=== PATIENT | male | born 1960 | race Caucasian/White ===

== ENCOUNTER 2017-06-08 11:00 | Inpatient (IN) ==
[2017-06-08] MEDS ORDERED: NITROGLYCERIN 2% OINT 1 INCH/GM PACK TOP ONE (11:13)
[2017-06-08] MEDS ORDERED: ONDANSETRON 4 MG/2 ML VIAL IV STA (11:14)
[2017-06-08] MEDS ORDERED: METOPROLOL TARTRATE 5 MG/5 ML VIAL IV STA (11:14)
[2017-06-08] MEDS ORDERED: NITROGLYCERIN 2% OINT 1 INCH/GM PACK TOP STA (11:14)
[2017-06-08] MEDS ORDERED: ENOXAPARIN 100 MG/ML SYRINGE SUBCUT STA (11:14)
[2017-06-08] MEDS ORDERED: ENOXAPARIN 80 MG/0.8 ML SYRINGE SUBCUT ONE (11:14)
[2017-06-08] MEDS ORDERED: ONDANSETRON 4 MG/2 ML VIAL ONE (11:14)
[2017-06-08] MEDS ORDERED: ASPIRIN 325 MG TABLET ONE (11:14)
[2017-06-08] MEDS ORDERED: TICAGRELOR 90 MG TABLET PO STA (11:14)
[2017-06-08] MEDS ORDERED: MORPHINE 2 MG/1 ML SYRINGE ONE (11:14)
[2017-06-08] MEDS ORDERED: ASPIRIN 325 MG TABLET PO STA (11:14)
[2017-06-08] MEDS ORDERED: MORPHINE 2 MG/1 ML SYRINGE IV STA (11:14)
[2017-06-08] MEDS ORDERED: MIDAZOLAM 2 MG/2 ML VIAL ONE (11:17)
[2017-06-08] MEDS ORDERED: TICAGRELOR 90 MG TABLET ONE (11:17)
[2017-06-08] MEDS ORDERED: MEPERIDINE 25 MG/1 ML VIAL ONE (11:17)
--- NOTE | 2017-06-08 11:18 | Emergency Department Note ---
Phyllis Cheney Hilary, am scribing for, and in the presence of, Yong Corbin MD 11:18. Emerald Cheney Charles R, MD, personally performed the services described in this documentation, ascribed by Sandrine Ferguson in my presence, and it is both accurate and complete . Arrival - Arrival Chief Complaint: Chest Pain Stated Complaint: chest pain,SOB, arm pain, sweating ED Nursing Triage Note: patient has been having chest pain for the last week. this am he broke out in a sweat and pain became worse, nauseated, constant pain located across chest to left arm. reports dizziness. 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 Limitations: No Limitations Source: Patient, RN Notes Reviewed - History of Present Illness HPI Narrative: Pt is a 57 y/o male presenting to the ED with c/o chest pain which has been intermittent for a week but became constant this morning. Pt rates the pain at an 8 out of 10. Pt confirms diaphoresis, chest pain, SOB, nausea and left arm pain radiated from his chest. No other complaints or problems stated in the ED. Pt admits to Marijuana use last night but denies usage of cocaine or Viagra. Onset (ago): hour(s) Consistency: constant Severity: severe Severity scale (1-10): 8 Quality: sharp Allergies/Adverse Reactions: Allergies Allergy/AdvReac Type Severity Reaction Status Date / Time acetaminophen [From Lortab] AdvReac Intermediate Vomiting Verified 01/17/17 09: 12 hydrocodone [From Lortab] AdvReac Intermediate Vomiting Verified 01/17/17 09:12 Review of System - Review of System 12 point system: reviewed and no additional remarkable complaints except as stated - Review of System Constitutional: Present: diaphoresis. Absent: fever Respiratory: Present: respiratory distress (SOB) Cardiovascular: Present: chest pain Gastrointestinal: Present: nausea Musculoskeletal: Present: arm pain (left arm) Medical,Surgical,& Family Hx - Social History Smoking Status: Never smoker Exam Vital Signs: Vital Signs Temperature 98.7 F 06/08/17 11:05 Pulse Rate 87 06/08/17 11:05 Respiratory Rate 26 H 06/08/17 11:05 Blood Pressure 173/103 06/08/17 11:05 O2 Sat by Pulse Oximetry 97 06/08/17 11:05 - General General appearance: alert, in no apparent distress - Head Head exam: Present: atraumatic, normocephalic - Eye Eye exam: Present: normal appearance, PERRL, EOMI - ENT ENT exam: Present: mucous membranes moist, TM's normal bilaterally. Absent: mucous membranes dry - Neck Neck exam: Present: full ROM, trachea midline. Absent: tenderness - Chest Chest inspection: Present: symmetric chest wall rise. Absent: tenderness - Respiratory Respiratory exam: Present: respiratory distress (SOB), rhonchi, wheezes ( expiratory) - Cardiovascular Cardiovascular exam: Present: regular rate, normal rhythm, normal heart sounds. Absent: murmur, rubs, gallop - Abdominal Exam Abdominal exam: Present: soft, normal bowel sounds. Absent: distention, tenderness - Extremities Exam Extremities exam: Present: full ROM. Absent: tenderness - Back Exam Back exam: Present: full ROM. Absent: tenderness - Neurological Exam Neurological exam: Present: alert, oriented X3, CN II-XII intact. Absent: motor sensory deficit - Psychiatric Psychiatric exam: Present: normal affect, normal mood - Skin Skin exam: Present: warm, intact, normal color, diaphoresis. Absent: rash Course - Consultations Consultation #1: Dr. Berrios notified of acute inferior wall NV ST elevation in leads II, III and aVF, patient will be sent down to the [facility] for immediate intervention Time: 11:10 Results - EKG EKG results: interpreted by ERMD - Impressions ST elevation NV in leads II, III, aVF inferior wall NV Critical Care Time Critical Care Time: Yes Total Critical Care Time: 30 Disposition Clinical Impression: Chest pain, ST elevation myocardial infarction (STEMI) Case discussed with: patient Disposition: Still a Patient Condition: Guarded Time of Disposition: 11:19
[2017-06-08] MEDS ORDERED: HEPARIN/NACL 0.9% 2 UNITS/ML 0 ML IV ONE (11:20)
[2017-06-08] MEDS ORDERED: LIDOCAINE 1% 20 ML VIAL ONE (11:23)
[2017-06-08 11:30] LABS: Basophils # 0.1 10*3/uL (0.0-0.2); Basophils % 0.7 % (0.0-0.8); Eosinophils # 0.1 10*3/uL (0.0-0.87); Eosinophils % 0.8 % (0.00-10.9); Hematocrit 49.3 VOL% (42.0-52.0); Hemoglobin 17.1 GM/DL (14.0-18.0); Immature Granulocytes % 0.4 %; Immature Granulocytes Absolute 0.06 #; Lymphocytes # 3.3 10*3/uL (1.4-4.0); Lymphocytes % 24.6 % (21.2-54.2); Mean Corpuscular HGB Conc 34.7 GM/DL (32-36); Mean Corpuscular Hemoglobin 32 PG (27-34); Mean Corpuscular Volume 90.8 FL (87-102); Mean Platelet Volume 10.1 FL (9.6-12.0); Monocytes % 7.6 % (1.7-12.7); Neutrophils # 8.9 10*3/uL (1.4-7.4); Neutrophils % 65.9 % (38.7-73.9); Platelet Count 288 T/CUMM (130-400); Red Blood Count 5.43 MC/CUMM (3.8-5.5); Red Cell Distribution Width 13.8 % (9.3-17.3); White Blood Count 13.5 T/CUMM (4-12)
[2017-06-08] MEDS ORDERED: TIROFIBAN 5,000 MCG/100 ML PREMIX IV ONE (11:37)
[2017-06-08] MEDS ORDERED: ATROPINE 1 MG/1 ML VIAL ONE (11:48)
[2017-06-08] MEDS ORDERED: TIROFIBAN 5,000 MCG/100 ML PREMIX IV SCH (11:49)
[2017-06-08 12:08] LABS: Albumin 3.9 G/DL (3.4-5.0); Bilirubin,Total 0.4 MG/DL (0.2-1.0); Calcium 9.6 MG/DL (8.5-10.1); Magnesium 2.3 MG/DL (1.8-2.4); Osmolality,Calculated 271.8 MOS/KG (273-304)
--- NOTE | 2017-06-08 12:36 | Cardiology History & Physical ---
Assessment and Plan - Time spent with patient Time spent with patient: Greater than 30 minutes (1) ST elevation myocardial infarction (STEMI) Status: Acute Assessment and plan: Inferior ST elevation [place], acute Plan/recommendation: Lovenox Aspirin Oiir-qyyywwk-nfqdfqckbh ELIZABETH inhibitor if blood pressure tolerates it and if LVEF is below 40% Brilinta Check lipid profile and treat per guidelines I discussed with the patient the benefits of stopping tobacco/nicotine, the problems with continuing to use it, and options of treatment. The patient is considering this option. Emergency heart cath cath and possible PTCA or stent. Left heart cath and possible PTCA or stent were discussed with the patient. The risk of the procedure include but are not limited to a small risk of injury to the vessel, abnormal heart rhythm, stroke, heart attack, need for emergent surgery, contrast reaction, restenosis, infection, or . The patient voices understanding, agrees with the plan, and desires to proceed with the heart catheterization. Current Visit: Yes (2) Smoker Status: Acute Current Visit: Yes (3) Chest pain Status: Acute Current Visit: Yes History of Present Illness Chief complaint: "I hurt my chest" History of present illness: Mr. 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 He suddenly had onset of midline chest pain. He came to emergency room. He was seen. An inferior ST elevation [place]. [facility] When she arrived emergency room, Dr. Corbin noted inferior ST elevation [place]. He was given Lovenox 60 mg subcu, Brilinta 180 mg p.o., aspirin 325 mg daily. He was given some IV metoprolol. He was sent to the [facility]. He has not had prior heart problem No history of diabetes, kidney disease, lung disease No bleeding in the pt's bowels, urine, or coughing up blood. No planned surgery for the next year. No contraindication to anticoagulation for a year. He does smoke cigarettes. Plans to quit. Does not drink alcohol. He states he can and will take medications after this event to help reduce his risk of having another heart attack. Allergies Allergy/AdvReac Type Severity Reaction Status Date / Time acetaminophen [From Lortab] AdvReac Intermediate Vomiting Verified 01/17/17 09: 12 hydrocodone [From Lortab] AdvReac Intermediate Vomiting Verified 01/17/17 09:12 12 point system: reviewed and no additional remarkable complaints except as stated (A 12 point review of systems is negative except for as mentioned in HPI. ) Medical,Surgical,& Family Hx - Social History Smoking Status: Current every day smoker Have you smoked in the last 12 months: Yes Time spent discussing smoking cessation with patient: 3 to 10 minutes Frequency of Alcohol Use: None Type of Drug Use: None Functional capacity: independent ambulation Cardiology Physical Exam - Constitutional Vitals: Vital Signs Temp Pulse Resp BP Pulse Ox 98.7 F 87 26 H 178/89 98 06/08/17 11:15 06/08/17 11:15 06/08/17 11:15 06/08/17 11:15 06/08/17 11:15 Intake and Output 06/07/17 06/08/17 06/08/17 23:59 07:59 15:59 Other: Weight 61.235 kg Patient Weight 06/08/17 23:59 Weight 61.235 kg Exam: HEENT: Pupils equal, reactive to light and accommodation Neck: NoJVD or bruit Lungs clear to auscultation Heart: Regular rhythm rate with normal S1 and S2. Apical S4 Abdomen: No hepatosplenomegaly Spine/extremities: No clubbing, cyanosis, or edema Neuro: Nonfocal Psych: No depression or anxiety Femoral pulses are 4+. Foot pulses are 3+. Result/EKG - Labs CBC & BMP: 06/08/17 11:14 06/08/17 11:14 Lab Results: I have reviewed the past 24 hour labs Labs: Laboratory Results - last 24 hr 06/08/17 06/08/17 06/08/17 11:14 11:14 11:14 WBC 13.5 H RBC 5.43 Hgb 17.1 Hct 49.3 MCV 90.8 MCH 32 MCHC 34.7 RDW 13.8 Plt Count 288 MPV 10.1 Neut % (Auto) 65.9 Lymph % (Auto) 24.6 [place] % (Auto) 7.6 Eos % (Auto) 0.8 Baso % (Auto) 0.7 Neut # (Auto) 8.9 H Lymph # (Auto) 3.3 [place] # (Auto) 1.0 H Eos # (Auto) 0.1 Baso # (Auto) 0.1 Immature Gran % 0.4 Nucleated RBC % 0.0 Immature Gran # 0.06 Nucleated RBCs # 0.00 Immature Plt Fraction 0.0 Sodium 137 Potassium 4.0 Chloride 101 Carbon Dioxide 24 Anion Gap 16.0 H BUN 6 L Creatinine 1.00 GFR Calculation 83 BUN/Creatinine Ratio 6.00 Glucose 108 H Calculated Osmolality 271.8 L Calcium 9.6 Magnesium 2.3 Total Bilirubin 0.40 AST 26 ALT 18 Alkaline Phosphatase 89 Troponin I B-Natriuretic Peptide 29 Total Protein 8.0 Albumin 3.9 Globulin 4.1 H Albumin/Globulin Ratio 0.9 L 06/08/17 11:14 WBC RBC Hgb Hct MCV MCH MCHC RDW Plt Count MPV Neut % (Auto) Lymph % (Auto) [place] % (Auto) Eos % (Auto) Baso % (Auto) Neut # (Auto) Lymph # (Auto) [place] # (Auto) Eos # (Auto) Baso # (Auto) Immature Gran % Nucleated RBC % Immature Gran # Nucleated RBCs # Immature Plt Fraction Sodium Potassium Chloride Carbon Dioxide Anion Gap BUN Creatinine GFR Calculation BUN/Creatinine Ratio Glucose Calculated Osmolality Calcium Magnesium Total Bilirubin AST ALT Alkaline Phosphatase Troponin I 0.214 H B-Natriuretic Peptide Total Protein Albumin Globulin Albumin/Globulin Ratio - Diagnostic Findings Procedure: Chest x-ray: report reviewed by me - EKG EKG results: interpreted by me
--- NOTE | 2017-06-08 12:39 | Operative Note ---
Date of procedure: 06/08/17 Procedure Preformed: Left heart cath Coronary angiography Aggrastat bolus and infusion Stent of mid right coronary artery, 3.0 x 15 mm Bradly Mcgowan, after pre- dilating with a 2.5 x 15 mm trek Loading with Brilinta, 180 mg p.o. --given in the emergency room-- Left ventriculography Angiogram of the right femoral artery--via follow-through from the left ventriculogram Angio-Seal of the right femoral artery-successful Surgeon / Physician: Jean Berrios Supervisor Purification: Hermes Vivas Post-op diagnosis: same (Inferior ST elevation [place], acute chest pain) Findings: Impression: Subtotal stenosis of the mid right coronary artery-99% stenosis, XAVIER grade II flow Moderate disease in the proximal right coronary and the mid LAD Significant disease in a small, 1.5 mm obtuse marginal circumflex-tandem 90% lesions-for medical therapy Aggrastat bolus and infusion Brilinta 180 mg p.o. given in the emergency room Heparin 5000 units IV push given Lovenox 60 mg subcu given the emergency room Status post successful stenting of the mid right coronary ioyoue-isc-jrqxwqbb with a 2.5 x 15 mm trek then stenting with a drug-eluting stent, 3.0 x 15 mm Gary Mcgowan Normal global left systolic function, LVEF 55% inferobasal mild hypokinesis High normal LVEDP, 12 mmHg Angiogram right femoral artery-via follow-through from the LV gram Angio-Seal right femoral artery-successful Plan/recommendations: Based on this angiogram, the patient's inferior STEMI was related to a totaled and subtotal occlusion of the mid right coronary. He had it successfully intervened upon in 54 minutes, door to balloon time. He has had minimal damage. I discussed with about trying to taper and discontinue smoking. He agrees. I will check his lipids and treat treat per guidelines. He is assured me that he would take medication as needed to help him recover from his heart attack. He will be on aspirin daily indefinitely. He will be on Brilinta for at least a year. He will be on some carvedilol, beta-karen, post [place]. Because his ejection fraction is not low, it is normal, I will only use ELIZABETH inhibitor if needed for blood pressure. The patient will have risk factors optimized. Follow-up will be scheduled. Addenda: I saw the patient post-cath. the groin puncture site and distal pulse are stable. vital signs are stable and the patient will be observed closely overnight. Specimens: none sent Estimated blood loss: minimal Condition: stable Anesthesia: local, conscious sedation Disposition: ICU
--- NOTE | 2017-06-08 12:46 | Cardiology Operative Report ---
Date of Procedure:: 06/08/17 Post-op diagnosis: same (Inferior ST elevation [place], acute chest pain) Procedure: Patient Name: Gerson Andino Date of : 62 Patient Status: Inpatient Attending Provider: Jena Berrios Date: 06/08/17 12:36 Initialization Date: 06/08/17 12:36 Date of procedure: 06/08/17 Procedure Preformed: Left heart cath Coronary angiography Aggrastat bolus and infusion Stent of mid right coronary artery, 3.0 x 15 mm Xience Alpine, after pre- dilating with a 2.5 x 15 mm trek Loading with Brilinta, 180 mg p.o. --given in the emergency room-- Left ventriculography Angiogram of the right femoral artery--via follow-through from the left ventriculogram Angio-Seal of the right femoral artery-successful Surgeon / Physician: Jean Berrios Silverware Washer: Hermes Vivas Post-op diagnosis: same (Inferior ST elevation AR, acute chest pain) procedure: The patient was prepped and draped in usual manner. Entered the right femoral artery via the Seldinger technique. I used a sheath and then used a JL4 and engaged left coronary. Multiple views were taken. I then exchanged for a JR4. Multiple views of the right coronary were taken. I then proceeded with the coronary stent procedure/intervention---see below. I then exchanged for an angled pigtail. I crossed the valve. Left ventricular end-diastolic pressures measured. Left ventriculography was done. Left ventricle pullback was done. The catheters were then removed from the patient. Please see the data sheets for the details of catheters used. Intervention: Cardiovascular surgery was available for any complications. The coronary intervention was done using a JR4 guiding catheter and a 0.014 run through wire. After predilatation with a 2.5 x 15 mm trek balloon, I then placed a 3.0 by 15 mm Zions Alpine coronary stent across the lesion. It was deployed. Afterwards, there was a good result. Angiogram of the right femoral artery was done, either at that time or as a follow-through from the aortogram/left ventriculogram. Closure device was used -see data sheets. patient was transferred to her room on telemetry in satisfactory condition. Please see the cath report for details of the pressures and times. Complications: none Hemodynamic data: LVEDP was 12 mmHg. Angiographic data: The left main coronary was large and had minimal luminal irregularities. The left anterior descending artery was large. There was one major diagonal one major septal rfid technician. The midportion had a 50% tubular narrowing. Otherwise there are minimal luminal irregularities.. The left circumflex system was small. There was one major obtuse marginal. There is a proximal 70% and then mid 90% narrowing, but these were in small vessels, about 1 mm in diameter. The right coronary artery was large in size, dominant vessel with the PDA and post lateral branch. There is a mid vessel 99% narrowing. There is XAVIER grade II flow distally. The proximal right coronary had a 40-50% tubular narrowing. Following balloon to the stenting of the Mid right coronary there is a 0% residual and XAVIER grade III flow. ALVAREZ left ventriculography revealed normal global/regional left ventricular systolic function. Overall ejection fraction was at least 55%. There is no significant mitral regurgitation. There was inferobasal hypokinesis. Angiogram of the right femoral artery revealed the puncture site to be in a large vessel, above the bifurcation. It was suitable for a clocure device. Impression: Subtotal stenosis of the mid right coronary artery-99% stenosis, XAVIER grade II flow Moderate disease in the proximal right coronary and the mid LAD Significant disease in a small, 1.5 mm obtuse marginal circumflex-tandem 90% lesions-for medical therapy Aggrastat bolus and infusion Brilinta 180 mg p.o. given in the emergency room Heparin 5000 units IV push given Lovenox 60 mg subcu given the emergency room Status post successful stenting of the mid right coronary nylarh-jbq-msnusfsa with a 2.5 x 15 mm trek then stenting with a drug-eluting stent, 3.0 x 15 mm Gary Mcgowan Normal global left systolic function, LVEF 55% inferobasal mild hypokinesis High normal LVEDP, 12 mmHg Angiogram right femoral artery-via follow-through from the [facility] Angio-Seal right femoral artery-successful Plan/recommendations: Based on this angiogram, the patient's inferior STEMI was related to a totaled and subtotal occlusion of the mid right coronary. He had it successfully intervened upon in 54 minutes, door to balloon time. He has had minimal damage. I discussed with about trying to taper and discontinue smoking. He agrees. I will check his lipids and treat treat per guidelines. He is assured me that he would take medication as needed to help him recover from his heart attack. He will be on aspirin daily indefinitely. He will be on Brilinta for at least a year. He will be on some carvedilol, beta-karen, post AR. Because his ejection fraction is not low, it is normal, I will only use ELIZABETH inhibitor if needed for blood pressure. The patient will have risk factors optimized. Follow-up will be scheduled. Addenda: I saw the patient post-cath. the groin puncture site and distal pulse are stable. vital signs are stable and the patient will be observed closely overnight. Specimens: none sent Estimated blood loss: minimal Condition: stable Anesthesia: local, conscious sedation Disposition: ICU Additional CC's: Jean Berrios Anesthesia: local, minimal conscious sedation Surgeon / Physician: Jean Berrios Silverware Washer: other Estimated blood loss: minimal Specimens: none sent Condition: stable Disposition: ICU/CCU
[2017-06-08] MEDS ORDERED: NITROGLYCERIN SL 0.4 MG TABLET SL PRN (12:47)
[2017-06-08] MEDS ORDERED: ONDANSETRON 4 MG/2 ML VIAL IV PRN (12:47)
[2017-06-08] MEDS ORDERED: MAGNESIUM SULF RIDER 4 GM in PREMIX 1 EACH IV PRN (12:47)
[2017-06-08] MEDS ORDERED: MAGNESIUM SULF RIDER 2 GM in PREMIX 1 EACH IV PRN (12:47)
[2017-06-08] MEDS ORDERED: CARVEDILOL 6.25 MG TABLET PO SCH (13:00)
--- NOTE | 2017-06-08 13:03 | EKG Report ---
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
[2017-06-08] MEDS: SODIUM CHLORIDE 0.9% 1,000 ML IV SCH ×2 (13:11→18:12)
[2017-06-08] MEDS: PANTOPRAZOLE 40 MG TABLET PO SCH (13:40)
[2017-06-08] MEDS ORDERED: HEPARIN 5,000 UNIT/1 ML VIAL ONE (13:53)
[2017-06-08 14:02] LABS: CKMB % 6.5 %; Risk Ratio 3.13; VLDL CHOLESTEROL 14.2 MG/DL
[2017-06-08 14:05] LABS: Troponin I Only 3.34 NG/ML (0.00-0.045)
--- NOTE | 2017-06-08 17:05 | EKG Report ---
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
[2017-06-08] MEDS: CLORAZEPATE 3.75 MG TABLET PO PRN (18:41)
[2017-06-08] MEDS: TICAGRELOR 90 MG TABLET PO SCH (21:35)
[2017-06-08] MEDS: CARVEDILOL 3.125 MG TABLET PO SCH (21:35)
[2017-06-09 05:21] LABS: Basophils # 0.1 10*3/uL (0.0-0.2); Basophils % 0.6 % (0.0-0.8); Eosinophils % 0.3 % (0.00-10.9); Hematocrit 40.5 VOL% (42.0-52.0); Immature Granulocytes % 0.6 %; Immature Granulocytes Absolute 0.06 #; Lymphocytes # 1.5 10*3/uL (1.4-4.0); Lymphocytes % 13.5 % (21.2-54.2); Mean Corpuscular HGB Conc 34.1 GM/DL (32-36); Mean Corpuscular Hemoglobin 31 PG (27-34); Mean Corpuscular Volume 91.2 FL (87-102); Mean Platelet Volume 10.7 FL (9.6-12.0); Monocytes # 1.1 10*3/uL (0.11-0.8); Monocytes % 10.2 % (1.7-12.7); Neutrophils % 74.8 % (38.7-73.9); Red Blood Count 4.44 MC/CUMM (3.8-5.5); White Blood Count 10.7 T/CUMM (4-12)
[2017-06-09 05:35] LABS: Hemoglobin 13.8 GM/DL (14.0-18.0); Platelet Count 212 T/CUMM (130-400)
[2017-06-09 05:57] LABS: CKMB % 6.1 %
--- NOTE | 2017-06-09 05:57 | EKG Report ---
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
[2017-06-09 06:01] LABS: Albumin 2.7 G/DL (3.4-5.0); Bilirubin,Total 1.5 MG/DL (0.2-1.0); Calcium 8.2 MG/DL (8.5-10.1); Osmolality,Calculated 275.4 MOS/KG (273-304); Potassium 3.8 MMOL/L (3.5-5.1); Total Protein 5.5 G/DL (6.4-8.3)
[2017-06-09 06:03] LABS: Troponin I Only 16.9 NG/ML (0.00-0.045)
--- NOTE | 2017-06-09 06:34 | EKG Report ---
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
[2017-06-09] MEDS: TICAGRELOR 90 MG TABLET PO SCH ×2 (08:28→21:30)
[2017-06-09] MEDS: ASPIRIN CHEW 81 MG TABLET PO SCH (08:28)
[2017-06-09] MEDS: PANTOPRAZOLE 40 MG TABLET PO SCH (08:28)
[2017-06-09] MEDS: CARVEDILOL 3.125 MG TABLET PO SCH (09:20)
--- NOTE | 2017-06-09 10:15 | Cardiology Progress Note ---
Cardiology - PN: Subj Interval history: Jelena to complete Echo today ([facility] yesterday) Transfer to tele Case management to assist with Brilinta x 1 year. If no year assistance available, consider Plavix. (No insurance per patient) Adding Folic Acid. Tranxene on board. Daily ETOH Added Atorvastatin Holding Coreg Even lower dose - sinus andre 40s. Exam (Progress Note) - Constitutional Vitals: Period Temp Pulse Resp BP Sys/Jack Pulse Ox Last 24 Hr 97.9 F-98.7 F 48-95 12-26 107-178/53-103 96-100 Result/EKG - Labs CBC & BMP: 06/09/17 04:36 06/09/17 04:35 Labs: Laboratory Results - last 24 hr 06/08/17 06/08/17 06/08/17 11:14 11:14 11:14 WBC 13.5 H RBC 5.43 Hgb 17.1 Hct 49.3 MCV 90.8 MCH 32 MCHC 34.7 RDW 13.8 Plt Count 288 MPV 10.1 Neut % (Auto) 65.9 Lymph % (Auto) 24.6 [place] % (Auto) 7.6 Eos % (Auto) 0.8 Baso % (Auto) 0.7 Neut # (Auto) 8.9 H Lymph # (Auto) 3.3 [place] # (Auto) 1.0 H Eos # (Auto) 0.1 Baso # (Auto) 0.1 Immature Gran % 0.4 Nucleated RBC % 0.0 Immature Gran # 0.06 Nucleated RBCs # 0.00 Immature Plt Fraction 0.0 Sodium 137 Potassium 4.0 Chloride 101 Carbon Dioxide 24 Anion Gap 16.0 H BUN 6 L Creatinine 1.00 GFR Calculation 83 BUN/Creatinine Ratio 6.00 Glucose 108 H Calculated Osmolality 271.8 L Calcium 9.6 Magnesium 2.3 Total Bilirubin 0.40 AST 26 ALT 18 Alkaline Phosphatase 89 Total Creatine Kinase CK-MB (CK-2) CK and CKMB Interp Troponin I B-Natriuretic Peptide 29 Total Protein 8.0 Albumin 3.9 Globulin 4.1 H Albumin/Globulin Ratio 0.9 L Triglycerides Cholesterol LDL Cholesterol VLDL Cholesterol HDL Cholesterol Heart Disease Risk Ratio 06/08/17 06/08/17 06/08/17 11:14 13:05 13:05 WBC RBC Hgb Hct MCV MCH MCHC RDW Plt Count MPV Neut % (Auto) Lymph % (Auto) [place] % (Auto) Eos % (Auto) Baso % (Auto) Neut # (Auto) Lymph # (Auto) [place] # (Auto) Eos # (Auto) Baso # (Auto) Immature Gran % Nucleated RBC % Immature Gran # Nucleated RBCs # Immature Plt Fraction Sodium Potassium Chloride Carbon Dioxide Anion Gap BUN Creatinine GFR Calculation BUN/Creatinine Ratio Glucose Calculated Osmolality Calcium Magnesium Total Bilirubin AST ALT Alkaline Phosphatase Total Creatine Kinase 318 H CK-MB (CK-2) 20.7 H CK and CKMB Interp 6.5 Troponin I 0.214 H 3.340 H D B-Natriuretic Peptide Total Protein Albumin Globulin Albumin/Globulin Ratio Triglycerides 71 Cholesterol 150 LDL Cholesterol 85.0 VLDL Cholesterol 14.2 HDL Cholesterol 48 Heart Disease Risk Ratio 3.13 06/08/17 06/09/17 06/09/17 21:14 04:35 04:36 WBC 10.7 RBC 4.44 Hgb 13.8 L D Hct 40.5 L MCV 91.2 MCH 31 MCHC 34.1 RDW 14.0 Plt Count 212 D MPV 10.7 Neut % (Auto) 74.8 H Lymph % (Auto) 13.5 L [place] % (Auto) 10.2 Eos % (Auto) 0.3 Baso % (Auto) 0.6 Neut # (Auto) 8.0 H Lymph # (Auto) 1.5 [place] # (Auto) 1.1 H Eos # (Auto) 0.0 Baso # (Auto) 0.1 Immature Gran % 0.6 Nucleated RBC % 0.0 Immature Gran # 0.06 Nucleated RBCs # 0.00 Immature Plt Fraction 0.0 Sodium 140 Potassium 3.8 Chloride 109 H Carbon Dioxide 24 Anion Gap 10.8 BUN 5 L Creatinine 0.80 GFR Calculation 99 BUN/Creatinine Ratio 6.00 Glucose 95 Calculated Osmolality 275.4 Calcium 8.2 L Magnesium Total Bilirubin 1.50 H AST 84 H ALT 21 Alkaline Phosphatase 65 Total Creatine Kinase 778 H D CK-MB (CK-2) 70.3 H D CK and CKMB Interp 9.0 Troponin I 29.000 H D B-Natriuretic Peptide Total Protein 5.5 L Albumin 2.7 L Globulin 2.8 Albumin/Globulin Ratio 0.9 L Triglycerides Cholesterol LDL Cholesterol VLDL Cholesterol HDL Cholesterol Heart Disease Risk Ratio 06/09/17 04:36 WBC RBC Hgb Hct MCV MCH MCHC RDW Plt Count MPV Neut % (Auto) Lymph % (Auto) [place] % (Auto) Eos % (Auto) Baso % (Auto) Neut # (Auto) Lymph # (Auto) [place] # (Auto) Eos # (Auto) Baso # (Auto) Immature Gran % Nucleated RBC % Immature Gran # Nucleated RBCs # Immature Plt Fraction Sodium Potassium Chloride Carbon Dioxide Anion Gap BUN Creatinine GFR Calculation BUN/Creatinine Ratio Glucose Calculated Osmolality Calcium Magnesium Total Bilirubin AST ALT Alkaline Phosphatase Total Creatine Kinase 627 H CK-MB (CK-2) 38.3 H D CK and CKMB Interp 6.1 Troponin I 16.900 H D B-Natriuretic Peptide Total Protein Albumin Globulin Albumin/Globulin Ratio Triglycerides Cholesterol LDL Cholesterol VLDL Cholesterol HDL Cholesterol Heart Disease Risk Ratio Quality Measures - VTE Contraindication to Pharmacological VTE Prophylaxis: High Risk of Bleeding Specialty Discharge - Follow Up or Referrals
[2017-06-09] MEDS ORDERED: ATORVASTATIN 40 MG TABLET PO ONE (10:16)
--- NOTE | 2017-06-09 14:51 | Cardiology Progress Note ---
Assessment and Plan - Time spent with patient Time spent with patient: Greater than 30 minutes Time spent discussing smoking cessation with patient: 3 to 10 minutes (1) Dyslipidemia Status: Chronic Assessment and plan: CONTINUE CURRENT PLAN LISTED BELOW Current Visit: Yes (2) CAD (coronary artery disease) Status: Chronic Assessment and plan: CONTINUE CURRENT PLAN LISTED BELOW Current Visit: Yes Qualifiers: Coronary Disease-Associated Artery/Lesion type: [place] artery [place] vs. transplanted heart: [place] heart Associated angina: with unstable angina Qualified Code(s): I25.110 - Atherosclerotic heart disease of [place] coronary artery with unstable angina pectoris (3) Sinus bradycardia Status: Acute Assessment and plan: CONTINUE CURRENT PLAN LISTED BELOW Current Visit: Yes (4) ST elevation myocardial infarction (STEMI) Status: Acute Assessment and plan: CONTINUE CURRENT PLAN LISTED BELOW Current Visit: Yes Qualifiers: Involved coronary artery: right coronary artery Qualified Code(s): I21.11 - ST elevation (STEMI) myocardial infarction involving right coronary artery (5) Smoker Status: Chronic Assessment and plan: CONTINUE CURRENT PLAN LISTED BELOW Current Visit: Yes Cardiology - PN: Subj Interval history: GENERAL INTERNAL MEDICINE DOCTOR: DR. BERRIOS (new) SUMMARY: Mr. Andino, 57WM, with no prior history of known coronary artery disease but risk factors significant for: mild hypertension, dyslipidemia, tobaccoism, family history of premature coronary artery disease. Admitted June 08, 2017 with inferior STEMI. Emergently, patient was taken to cardiac catheterization lab per Dr. Berrios performed heart cath with the following noted: Impression: Subtotal stenosis of the mid right coronary artery - 99% stenosis, XAVIER grade II flow Moderate disease in the proximal right coronary and the mid LAD Significant disease in a small, 1.5 mm obtuse marginal circumflex-tandem 90% lesions - for medical therapy Status post successful stenting of the mid right coronary [id number] with a 2.5 x 15 mm trek then stenting with a drug-eluting stent, 3.0 x 15 mm Gary Mcgowan Normal global left systolic function, LVEF 55% with inferobasal mild hypokinesis High normal LVEDP, 12 mmHg Angiogram right femoral artery-via follow-through from the LV gram Angio-Seal right femoral artery-successful Plan/recommendations: Based on this angiogram, the patient's inferior STEMI was related to a totaled and subtotal occlusion of the mid right coronary. He had it successfully intervened upon in 54 minutes, door to balloon time. He had minimal damage. Discussion ensued about trying to taper and discontinue smoking. 2016: Overnight, patient has done well. His "indigestion" has resolved. Denies chest pain, heaviness or tightness. Troponin trending down. Has had sinus bradycardia (heart rate high 40s) in the evening yesterday and his beta-karen was decreased to 3.125 mg. Even this dose has still been withheld and he is still having sinus bradycardia heart rate high 40s low 50s. He seems to be asymptomatic. LDL 85 and will continue his lipid-lowering agent. Will add low-dose ELIZABETH inhibitor today and follow closely. At this time , continue Aspirin, Brilinta, ELIZABETH inhibitor and statin. Cardiac rehab has evaluated patient during this admission. Of note, patient does not have health insurance or prescription coverage. I have asked case management to evaluate his eligibility for possible 1 year supply of Brilinta with [employer]. Certainly, patient will be given a Brilinta prescription card at discharge which will allow for 30 days of Brilinta free of charge. However, he may qualify for further assistance. If not, we can always consider transitioning to Plavix as this would be less expensive. Right groin is soft, free of hematoma or bruit. Will remove dressing in the morning as a new dressing was just reapplied. May transition to telemetry for possible discharge Tuesday. Will further discuss with Dr. Berrios and await additional recommendations. ASSESSMENT/PLAN: 1. INFERIOR STEMI - status post revascularization. On appropriate medication. 2. DYSLIPIDEMIA - LDL 85. Continue lipid-lowering agent. Total bilirubin been an AST slightly elevated. Will repeat in the morning as this was normal on admission. 3. CAD - see heart catheterization results listed above. Continue aspirin, Brilinta, ELIZABETH inhibitor and lipid-lowering agent. 4. TOBACCO USE - greater than 5 minutes was spent today discussing the merits of tobacco cessation 5. SINUS BRADYCARDIA - stable but will avoid use of beta blockers 6. DAILY ALCOHOL USE - added folic acid medication regimen. Currently on Tranxene 3 times daily to assist with avoiding delirium tremens Exam (Progress Note) - Constitutional Vitals: Period Temp Pulse Resp BP Sys/Jack Pulse Ox Last 24 Hr 97.6 F-98.4 F 48-79 12-23 107-146/53-79 96-100 Exam: General: [Appears well with no apparent distress.] [Pleasant and cooperative. ] [Appears comfortable.] HEENT: [PERRL, normocephalic, atraumatic. Mucous membranes moist. No jaundice noted. Conjunctiva moist and clear, sclerae anicteric] Neck: No JVD/HJR, no thyromegaly or lymphadenopathy noted. No carotid bruit appreciated Cardiac: [Regular rate and rhythm.] [No murmur rub or gallop.] Lungs: [Clear to auscultation without accessory muscle use to assist the respiratory pattern.] Not requiring oxygen Abdomen: Soft, bowel sounds normoactive. Nontender and nondistended. No abdominal bruit or thrill noted. No masses noted. Musculoskeletal: No fluid collection. Decreased range of motion is noted. Extremities: Right groin is soft. Dressing intact. No clubbing, cyanosis noted. [ No edema noted.] Upper extremity pulses 2+. Lower extremity pulses 2+ . Capillary refill less than 3 seconds. Skin: No unusual lesions or rashes. No skin breakdown appreciated. Neuro: Awake, alert and oriented 3. Moves all extremities well without hemiparesis or paralysis. No essential tremor is appreciated. Result/EKG - Labs CBC & BMP: 06/09/17 04:36 06/09/17 04:35 Lab Results: I have reviewed the past 24 hour labs Labs: Laboratory Results - last 24 hr 06/08/17 06/09/17 06/09/17 21:14 04:35 04:36 WBC 10.7 RBC 4.44 Hgb 13.8 L D Hct 40.5 L MCV 91.2 MCH 31 MCHC 34.1 RDW 14.0 Plt Count 212 D MPV 10.7 Neut % (Auto) 74.8 H Lymph % (Auto) 13.5 L [place] % (Auto) 10.2 Eos % (Auto) 0.3 Baso % (Auto) 0.6 Neut # (Auto) 8.0 H Lymph # (Auto) 1.5 [place] # (Auto) 1.1 H Eos # (Auto) 0.0 Baso # (Auto) 0.1 Immature Gran % 0.6 Nucleated RBC % 0.0 Immature Gran # 0.06 Nucleated RBCs # 0.00 Immature Plt Fraction 0.0 Sodium 140 Potassium 3.8 Chloride 109 H Carbon Dioxide 24 Anion Gap 10.8 BUN 5 L Creatinine 0.80 GFR Calculation 99 BUN/Creatinine Ratio 6.00 Glucose 95 Calculated Osmolality 275.4 Calcium 8.2 L Total Bilirubin 1.50 H AST 84 H ALT 21 Alkaline Phosphatase 65 Total Creatine Kinase 778 H D CK-MB (CK-2) 70.3 H D CK and CKMB Interp 9.0 Troponin I 29.000 H D Total Protein 5.5 L Albumin 2.7 L Globulin 2.8 Albumin/Globulin Ratio 0.9 L 06/09/17 04:36 WBC RBC Hgb Hct MCV MCH MCHC RDW Plt Count MPV Neut % (Auto) Lymph % (Auto) [place] % (Auto) Eos % (Auto) Baso % (Auto) Neut # (Auto) Lymph # (Auto) [place] # (Auto) Eos # (Auto) Baso # (Auto) Immature Gran % Nucleated RBC % Immature Gran # Nucleated RBCs # Immature Plt Fraction Sodium Potassium Chloride Carbon Dioxide Anion Gap BUN Creatinine GFR Calculation BUN/Creatinine Ratio Glucose Calculated Osmolality Calcium Total Bilirubin AST ALT Alkaline Phosphatase Total Creatine Kinase 627 H CK-MB (CK-2) 38.3 H D CK and CKMB Interp 6.1 Troponin I 16.900 H D Total Protein Albumin Globulin Albumin/Globulin Ratio - Diagnostic Findings Procedure: Chest x-ray: report reviewed by me - EKG EKG results: interpreted by me EKG shows: bradycardia, sinus rhythm Quality Measures - VTE Contraindication to Pharmacological VTE Prophylaxis: High Risk of Bleeding Specialty Discharge - Follow Up or Referrals
[2017-06-09] MEDS: LISINOPRIL 2.5 MG TABLET PO SCH ×2 (15:25→21:31)
[2017-06-09] MEDS: FOLIC ACID 1 MG TABLET PO SCH ×2 (16:59→21:31)
[2017-06-09] MEDS ORDERED: SODIUM CHLORIDE 0.9% 1,000 ML IV SCH (20:30)
[2017-06-09] MEDS ORDERED: ATORVASTATIN 40 MG TABLET PO SCH (21:00)
[2017-06-09] MEDS: CLORAZEPATE 3.75 MG TABLET PO PRN (22:54)
[2017-06-10 05:43] LABS: Basophils # 0.1 10*3/uL (0.0-0.2); Basophils % 0.6 % (0.0-0.8); Eosinophils # 0.2 10*3/uL (0.0-0.87); Eosinophils % 1.7 % (0.00-10.9); Hematocrit 42.9 VOL% (42.0-52.0); Hemoglobin 14.6 GM/DL (14.0-18.0); Immature Granulocytes % 0.4 %; Immature Granulocytes Absolute 0.04 #; Lymphocytes # 1.9 10*3/uL (1.4-4.0); Lymphocytes % 16.8 % (21.2-54.2); Mean Corpuscular Hemoglobin 31 PG (27-34); Mean Corpuscular Volume 90.7 FL (87-102); Mean Platelet Volume 10.8 FL (9.6-12.0); Monocytes # 1.2 10*3/uL (0.11-0.8); Monocytes % 10.3 % (1.7-12.7); Neutrophils # 7.9 10*3/uL (1.4-7.4); Neutrophils % 70.2 % (38.7-73.9); Platelet Count 200 T/CUMM (130-400); Red Blood Count 4.73 MC/CUMM (3.8-5.5); Red Cell Distribution Width 13.9 % (9.3-17.3); White Blood Count 11.2 T/CUMM (4-12)
[2017-06-10 06:16] LABS: Calcium 8.2 MG/DL (8.5-10.1); Magnesium 2.5 MG/DL (1.8-2.4); Osmolality,Calculated 277.3 MOS/KG (273-304); Potassium 3.6 MMOL/L (3.5-5.1)
[2017-06-10 06:21] LABS: Albumin 2.8 G/DL (3.4-5.0); Bilirubin,Direct 0.33 MG/DL (0.0-0.20); Bilirubin,Indirect 1.1 MG/DL (0.0-1.0); Bilirubin,Total 1.4 MG/DL (0.2-1.0); Total Protein 5.9 G/DL (6.4-8.3)
[2017-06-10 08:38] VITALS: BP 131/77
--- NOTE | 2017-06-10 08:39 | EKG Report ---
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
[2017-06-10] MEDS ORDERED: PNEUMOCOCCAL VACCINE (13 VALENT) 0.5 ML SYRINGE IM ONE (09:00)
--- NOTE | 2017-06-10 09:05 | Discharge Summary ---
Addendum entered and electronically signed by Jelena Ferreira NP 06/10/17 09: 25: THIS DISCHARGE SUMMARY WAS INCOMPLETE AND THEREFOR THERE IS ANOTHER DISCHARGE SUMMARY TO USE. Original Note: Hospital Course - Hospital Course Hospital Course: FOUNTAIN CLERK: DR. BERRIOS (new) Mr. Andino, 57WM, with no prior history of known coronary artery disease but risk factors significant for: mild hypertension, dyslipidemia, tobaccoism, family history of premature coronary artery disease. Admitted June 08, 2017 with inferior STEMI. Emergently, patient was taken to cardiac catheterization lab per Dr. Berrios performed heart cath with the following noted: Impression: Subtotal stenosis of the mid right coronary artery - 99% stenosis, XAVIER grade II flow Moderate disease in the proximal right coronary and the mid LAD Significant disease in a small, 1.5 mm obtuse marginal circumflex-tandem 90% lesions - for medical therapy Status post successful stenting of the mid right coronary [id number] with a 2.5 x 15 mm trek then stenting with a drug-eluting stent, 3.0 x 15 mm Gary Mcgowan Normal global left systolic function, LVEF 55% with inferobasal mild hypokinesis High normal LVEDP, 12 mmHg Angiogram right femoral artery-via follow-through from the LV gram Angio-Seal right femoral artery-successful Plan/recommendations: Based on this angiogram, the patient's inferior STEMI was related to a totaled and subtotal occlusion of the mid right coronary. He had it successfully intervened upon in 54 minutes, door to balloon time. He had minimal damage. Discussion ensued about trying to taper and discontinue smoking. 2016: Overnight, patient has done well. His "indigestion" has resolved. Denies chest pain, heaviness or tightness. Troponin trending down. Has had sinus bradycardia (heart rate high 40s) in the evening yesterday and his beta-karen was decreased to 3.125 mg. Even this dose has still been withheld and he is still having sinus bradycardia heart rate high 40s low 50s. He seems to be asymptomatic. LDL 85 and will continue his lipid-lowering agent. Will add low-dose ELIZABETH inhibitor today and follow closely. At this time , continue Aspirin, Brilinta, ELIZABETH inhibitor and statin. Cardiac rehab has evaluated patient during this admission. Of note, patient does not have health insurance or prescription coverage. I have asked case management to evaluate his eligibility for possible 1 year supply of Brilinta with [employer]. Certainly, patient will be given a Brilinta prescription card at discharge which will allow for 30 days of Brilinta free of charge. However, he may qualify for further assistance. If not, we can always consider transitioning to Plavix as this would be less expensive. Right groin is soft, free of hematoma or bruit. Will remove dressing in the morning as a new dressing was just reapplied. May transition to telemetry for possible discharge Tuesday. Will further discuss with Dr. Berrios and await additional recommendations. 2016: Mr. Andino has been ambulating without difficulty. He is feeling great, color looks good. Small hematoma right groin, no bruit. Labs are stable. After holding his Coreg he no longer has bradycardic rhythm. Repeated his LFTs and are somewhat better, still mildly elevated. Because of the mild elevation, I will decrease his Lipitor to 10 mg each evening with follow up LFT in clinic. Greater than 30 minutes was spent today discussing postop expectations, including importance of taking Brilinta without fail. Patient is being given a prescription card for 1 free month of Brilinta. She the patient needs samples he can contact our office and he verbalized understanding of this information. Case management has been working to see if they can get some type of a yearly supply from [employer]. Cardiac rehab has seen in educated patient. Having felt is met maximal medical therapy, he has been discharged home in stable condition. He has been given a follow-up appoint with Dr. keith in approximately 2 weeks. At that visit the following will be obtained: BMP, magnesium, CBC and LFT, EKG. Cardiac discharge medications include the following: Aspirin 81 mg orally daily Lisinopril 2.5 mg orally twice daily Brilinta 90 mg orally twice daily Lipitor 10 mg orally each evening Unable to tolerate beta-blockade due to bradycardia. - Time spent with patient Time with patient DS: Greater than 30 minutes Time spent discussing smoking cessation with patient: 3 to 10 minutes Diagnosis - Discharge Diagnosis (1) Dyslipidemia Status: Chronic (2) CAD (coronary artery disease) Status: Chronic (3) Sinus bradycardia Status: Resolved (4) ST elevation myocardial infarction (STEMI) Status: Acute (5) Smoker Status: Chronic Specialty Discharge - Follow Up or Referrals Follow up with: Jean Berrios MD [Physician] - 1 Month Discharge Plan - Discharge Medications No Action No Known Home Medications [No Known Home Medications] - Follow Up or Referral Follow Up: Jean Berrios MD [Physician] - 1 Month - Forms/Instructions Instructions: Myocardial Infarction (GEN), Coronary Artery Disease (GEN), Left Heart Catheterization (DC), How to Stop Smoking (GEN), Heart Healthy Diet (GEN) , Cigarette Smoking and Your Health (GEN) Exam - Constitutional Vitals: Period Temp Pulse Resp BP Sys/Jack Pulse Ox Last 24 Hr 96.9 F-98.5 F 54-79 14-18 112-151/60-88 94-100 Discharge Results Labs on day of discharge: Labs from last 24 hours 06/10/17 06/10/17 06/10/17 04:26 04:26 04:26 WBC 11.2 RBC 4.73 Hgb 14.6 Hct 42.9 MCV 90.7 MCH 31 MCHC 34.0 RDW 13.9 Plt Count 200 MPV 10.8 Neut % (Auto) 70.2 Lymph % (Auto) 16.8 L [place] % (Auto) 10.3 Eos % (Auto) 1.7 Baso % (Auto) 0.6 Neut # (Auto) 7.9 H Lymph # (Auto) 1.9 [place] # (Auto) 1.2 H Eos # (Auto) 0.2 Baso # (Auto) 0.1 Immature Gran % 0.4 Nucleated RBC % 0.0 Immature Gran # 0.04 Nucleated RBCs # 0.00 Immature Plt Fraction 0.0 Sodium 141 Potassium 3.6 Chloride 107 Carbon Dioxide 26 Anion Gap 11.6 BUN 7 Creatinine 0.80 GFR Calculation 98 BUN/Creatinine Ratio 8.00 Glucose 87 Calculated Osmolality 277.3 Calcium 8.2 L Magnesium 2.5 H Total Bilirubin 1.40 H Direct Bilirubin 0.330 H Indirect Bilirubin 1.1 H AST 47 H ALT 22 Alkaline Phosphatase 73 Total Protein 5.9 L Albumin 2.8 L DS: Provider Date of admission: 06/08/17 12:47 Primary care physician: . No PCP Attending physician on admission: Jean Berrios MD Consults: 06/08/17 12:47 Consult to Cardiac Rehabilitation [CONS] Routine Reason for Cardiac Rehabilitation: Risk Factor Modification Other Home Exercise Program/Red Appt Out Pt Cardiac Rehab Smoking Cessation Wrecking Car [employer] Consult Comment: Evaluate and recommend Discharging clinician: Jelena Ferreira NP Expected date of discharge: 06/10/17
[2017-06-10] MEDS: LISINOPRIL 2.5 MG TABLET PO SCH (09:06)
[2017-06-10] MEDS: ASPIRIN CHEW 81 MG TABLET PO SCH (09:06)
[2017-06-10] MEDS: TICAGRELOR 90 MG TABLET PO SCH (09:06)
[2017-06-10] MEDS: FOLIC ACID 1 MG TABLET PO SCH (09:06)
[2017-06-10] MEDS: PANTOPRAZOLE 40 MG TABLET PO SCH (09:06)
--- NOTE | 2017-06-10 09:15 | Discharge Summary ---
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 Andino, 57WM, with no prior history of known coronary artery disease but risk factors significant for: mild hypertension, dyslipidemia, tobaccoism, family history of premature coronary artery disease. Admitted June 08, 2017 with inferior STEMI. Emergently, patient was taken to cardiac catheterization lab per Dr. Berrios performed heart cath with the following noted: Impression: Subtotal stenosis of the mid right coronary artery - 99% stenosis, XAVIER grade II flow Moderate disease in the proximal right coronary and the mid LAD Significant disease in a small, 1.5 mm obtuse marginal circumflex-tandem 90% lesions - for medical therapy Status post successful stenting of the mid right coronary [id number] with a 2.5 x 15 mm trek then stenting with a drug-eluting stent, 3.0 x 15 mm Gary Mcgowan Normal global left systolic function, LVEF 55% with inferobasal mild hypokinesis High normal LVEDP, 12 mmHg Angiogram right femoral artery-via follow-through from the LV gram Angio-Seal right femoral artery-successful Plan/recommendations: Based on this angiogram, the patient's inferior STEMI was related to a totaled and subtotal occlusion of the mid right coronary. He had it successfully intervened upon in 54 minutes, door to balloon time. He had minimal damage. Discussion ensued about trying to taper and discontinue smoking. 2016: Overnight, patient has done well. His "indigestion" has resolved. Denies chest pain, heaviness or tightness. Troponin trending down. Has had sinus bradycardia (heart rate high 40s) in the evening yesterday and his beta-karen was decreased to 3.125 mg. Even this dose has still been withheld and he is still having sinus bradycardia heart rate high 40s low 50s. He seems to be asymptomatic. LDL 85 and will continue his lipid-lowering agent. Will add low-dose ELIZABETH inhibitor today and follow closely. At this time , continue Aspirin, Brilinta, ELIZABETH inhibitor and statin. Cardiac rehab has evaluated patient during this admission. Of note, patient does not have health insurance or prescription coverage. I have asked case management to evaluate his eligibility for possible 1 year supply of Brilinta with [facility]. Certainly, patient will be given a Brilinta prescription card at discharge which will allow for 30 days of Brilinta free of charge. However, he may qualify for further assistance. If not, we can always consider transitioning to Plavix as this would be less expensive. Right groin is soft, free of hematoma or bruit. Will remove dressing in the morning as a new dressing was just reapplied. May transition to telemetry for possible discharge Tuesday. Will further discuss with Dr. Berrios and await additional recommendations. 2016: Mr. Andino has been ambulating without difficulty. He is feeling great, color looks good. Small hematoma right groin, no bruit. Labs are stable. After holding his Coreg he no longer has bradycardic rhythm. Repeated his LFTs and are somewhat better, still mildly elevated. Because of the mild elevation, I will decrease his Lipitor to 10 mg each evening with follow up LFT in clinic. Greater than 30 minutes was spent today discussing postop expectations, including importance of taking Brilinta without fail. Patient is being given a prescription card for 1 free month of Brilinta. She the patient needs samples he can contact our office and he verbalized understanding of this information. Case management has been working to see if they can get some type of a yearly supply from [facility]. Cardiac rehab has seen in educated patient. Having felt is met maximal medical therapy, he has been discharged home in stable condition. He has been given a follow-up appoint with Dr. keith in approximately 2 weeks. At that visit the following will be obtained: BMP, magnesium, CBC and LFT, EKG. Cardiac discharge medications include the following: Aspirin 81 mg orally daily Lisinopril 2.5 mg orally twice daily Brilinta 90 mg orally twice daily Lipitor 10 mg orally each evening Unable to tolerate beta-blockade due to bradycardia. patient was given a handwritten Rx at discharge as there was no pharmacy listed in order to transmit meds electronically. - Time spent with patient Time with patient DS: Greater than 30 minutes Time spent discussing smoking cessation with patient: 3 to 10 minutes Diagnosis - Discharge Diagnosis (1) Dyslipidemia Status: Chronic (2) CAD (coronary artery disease) Status: Chronic (3) Sinus bradycardia Status: Resolved (4) ST elevation myocardial infarction (STEMI) Status: Acute (5) Smoker Status: Chronic Specialty Discharge - Follow Up or Referrals Follow up with: Jean Berrios MD [Physician] - 2 Weeks (2-3 weeks. BMP, Mg, CBC, LFT, EKG) Discharge Plan - Discharge Data Disposition: Disch To Home/Self Care Condition at Discharge: Stable Discharge Diet: heart healthy Activity: other (Post cath expectations) Hygiene: other (Post cath expectations) Weight Bearing at Discharge: other (Post cath expectations) Driving: other (Post cath expectations) Contact your physician if you experience:: fever over 101, Difficulty voiding, Redness or swelling, Nausea/Vomiting, Shortness of breath, Bleeding, pain uncontrolled by pain medications - Discharge Medications New Atorvastatin [Lipitor] 10 mg PO BEDTIME #30 tablet Nitroglycerin Sl Tab [Nitrostat] 0.4 mg SL Q5M PRN #1 bottle PRN Reason: Chest Pain Ticagrelor [Brilinta] 90 mg PO BID #60 tablet Aspirin Chew Tab 81 mg PO DAILY #30 tablet Lisinopril [Prinivil] 2.5 mg PO BID #60 tablet - Follow Up or Referral Follow Up: Jean Berrios MD [Physician] - 1 Month - Forms/Instructions Instructions: Myocardial Infarction (GEN), Coronary Artery Disease (GEN), Left Heart Catheterization (DC), How to Stop Smoking (GEN), Heart Healthy Diet (GEN) , Cigarette Smoking and Your Health (GEN) Additional Discharge Instructions: Please give patient orange Brilinta card for 1 free month of Brilinta. Exam - Constitutional Vitals: Period Temp Pulse Resp BP Sys/Jack Pulse Ox Last 24 Hr 96.9 F-98.5 F 60-79 14-18 117-151/60-88 94-100 Exam: General: [Appears well with no apparent distress.] [Pleasant and cooperative. ] [Appears comfortable.] HEENT: [PERRL, normocephalic, atraumatic. Mucous membranes moist. No jaundice noted. Conjunctiva moist and clear, sclerae anicteric] Neck: No JVD/HJR, no thyromegaly or lymphadenopathy noted. No carotid bruit appreciated Cardiac: [Regular rate and rhythm.] [No murmur rub or gallop.] Lungs: [Clear to auscultation without accessory muscle use to assist the respiratory pattern.] Not requiring oxygen Abdomen: Soft, bowel sounds normoactive. Nontender and nondistended. No abdominal bruit or thrill noted. No masses noted. Musculoskeletal: No fluid collection. Decreased range of motion is noted. Extremities: Right groin is soft. Small hematoma noted, mild ecchymosis. No clubbing, cyanosis noted. [ No edema noted.] Upper extremity pulses 2+. Lower extremity pulses 2+. Capillary refill less than 3 seconds. Skin: No unusual lesions or rashes. No skin breakdown appreciated. Neuro: Awake, alert and oriented 3. Moves all extremities well without hemiparesis or paralysis. No essential tremor is appreciated. Discharge Results Labs on day of discharge: Labs from last 24 hours 06/10/17 06/10/17 06/10/17 04:26 04:26 04:26 WBC 11.2 RBC 4.73 Hgb 14.6 Hct 42.9 MCV 90.7 MCH 31 MCHC 34.0 RDW 13.9 Plt Count 200 MPV 10.8 Neut % (Auto) 70.2 Lymph % (Auto) 16.8 L Cameron % (Auto) 10.3 Eos % (Auto) 1.7 Baso % (Auto) 0.6 Neut # (Auto) 7.9 H Lymph # (Auto) 1.9 Cameron # (Auto) 1.2 H Eos # (Auto) 0.2 Baso # (Auto) 0.1 Immature Gran % 0.4 Nucleated RBC % 0.0 Immature Gran # 0.04 Nucleated RBCs # 0.00 Immature Plt Fraction 0.0 Sodium 141 Potassium 3.6 Chloride 107 Carbon Dioxide 26 Anion Gap 11.6 BUN 7 Creatinine 0.80 GFR Calculation 98 BUN/Creatinine Ratio 8.00 Glucose 87 Calculated Osmolality 277.3 Calcium 8.2 L Magnesium 2.5 H Total Bilirubin 1.40 H Direct Bilirubin 0.330 H Indirect Bilirubin 1.1 H AST 47 H ALT 22 Alkaline Phosphatase 73 Total Protein 5.9 L Albumin 2.8 L - Imaging and Cardiology Cardiology Procedure: report reviewed by me Procedure: Chest x-ray: report reviewed by az DS: Provider Date of admission: 06/08/17 12:47 Primary care physician: . 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
[2017-06-10] MEDS ORDERED: ATORVASTATIN 10 MG TABLET PO SCH (21:00)
== END 2017-06-10 12:00 | disposition home or self-care (01) | DRG 247 ==
LOC: N.ED 11:00 → N.CL 11:19 → N.CC 12:47 → N.TELES 06-09 16:12
PROVIDERS: ADMIT Internal Medicine Cardiovascular Disease; ATTEND Internal Medicine Cardiovascular Disease
PROC: CLCCHCL (ICD-10-PCS; 2017-06-08 12:15)

== ENCOUNTER 2022-05-28 16:52 | Inpatient (IN) ==
[2022-05-28] MEDS ORDERED: SODIUM CHLORIDE 0.9% 1,000 ML IV STA (17:18)
[2022-05-28] MEDS ORDERED: PANTOPRAZOLE INJ 80 MG in SODIUM CHLORIDE 0.9% 100 ML IV STA (17:18)
[2022-05-28 17:31] LABS: Basophils # 0.1 10*3/uL (0.0-0.2); Basophils % 0.5 % (0.0-0.8); Eosinophils # 0.2 10*3/uL (0.0-0.87); Eosinophils % 1.6 % (0.00-10.9); Hemoglobin 6.5 GM/DL (14.0-18.0); Immature Granulocytes % 0.7 %; Immature Granulocytes Absolute 0.07 #; Lymphocytes % 10.1 % (21.2-54.2); Mean Corpuscular HGB Conc 28.3 GM/DL (32-36); Mean Corpuscular Volume 72.3 FL (87-102); Mean Platelet Volume 9.1 FL (9.6-12.0); Monocytes # 1.5 10*3/uL (0.11-0.8); Monocytes % 15.6 % (1.7-12.7); Neutrophils % 71.5 % (38.7-73.9); Platelet Count 484 T/CUMM (130-400); Red Blood Count 3.18 MC/CUMM (3.8-5.5); Red Cell Distribution Width 23.9 % (9.3-17.3); White Blood Count 9.8 T/CUMM (4-12)
[2022-05-28 17:43] LABS: INR 1.1; PT Patient Result 11.9 SECS (10.1-12.1)
[2022-05-28] MEDS ORDERED: SODIUM CHLORIDE 0.9% 1,000 ML IV PRN (17:49)
[2022-05-28 17:57] LABS: Alanine Aminotransferase 29 U/L (16-61); Albumin 2.2 G/DL (3.4-5.0); Alkaline Phosphatase 109 U/L (45-117); Aspartate Amino Transferase 47 U/L (0-37); Bilirubin,Total < 0.39 MG/DL (0.20-1.00); Blood Urea Nitrogen 21 MG/DL (7-18); Calcium 8.8 MG/DL (8.5-10.1); Carbon Dioxide 23 MMOL/L (21-32); Chloride 106 MMOL/L (98-107); Glucose 131 MG/DL (74-106); Osmolality,Calculated 279.7 MOS/KG (273-304); Potassium 3.9 MMOL/L (3.5-5.1); Sodium 138 MMOL/L (136-145); Total Protein 6.7 G/DL (6.4-8.2)
[2022-05-28 17:58] LABS: Eosinophils 1 % (0-10); Lymphocytes 9 % (20-55); Total Cells Counted 100
[2022-05-28 17:59] LABS: Anisocytosis 1+; Macrocytosis 1+; Microcytosis 1+
[2022-05-28 18:00] LABS: Hypochromia 1+; Platelet Estimate Increased
[2022-05-28] MEDS ORDERED: ONDANSETRON 4 MG/2 ML VIAL IV PRN (18:18)
[2022-05-28] MEDS ORDERED: PANTOPRAZOLE 40 MG VIAL IV ONE (18:24)
[2022-05-28] MEDS: LACTATED RINGERS 1,000 ML IV SCH (20:35)
[2022-05-28] MEDS: PANTOPRAZOLE INJ 200 MG in SODIUM CHLORIDE 0.9% 250 ML IV SCH (20:35)
[2022-05-28] MEDS: HYDROmorphone 1 MG/1 ML SYRINGE IV PRN (22:00)
[2022-05-29] MEDS: HYDROmorphone 1 MG/1 ML SYRINGE IV PRN (02:55)
[2022-05-29] MEDS ORDERED: SODIUM CHLORIDE 0.9% 1,000 ML IV PRN ×6 (03:39→19:32)
[2022-05-29] MEDS ORDERED: NOREPINEPHRINE 8 MG in SODIUM CHLORIDE 0.9% 242 ML IV PRN (03:41)
[2022-05-29] MEDS ORDERED: NOREPINEPHRINE 4 MG/4 ML VIAL IV ONE (03:43)
[2022-05-29] MEDS ORDERED: LACTATED RINGERS 1,000 ML IV ONE ×2 (03:48→19:30)
[2022-05-29 03:56] LABS: Basophils # 0.1 10*3/uL (0.0-0.2); Basophils % 0.6 % (0.0-0.8); Eosinophils # 0.2 10*3/uL (0.0-0.87); Eosinophils % 1.9 % (0.00-10.9); Hematocrit 23.9 VOL% (42.0-52.0); Hemoglobin 7.2 GM/DL (14.0-18.0); Immature Granulocytes % 0.9 %; Immature Granulocytes Absolute 0.08 #; Lymphocytes # 1.6 10*3/uL (1.4-4.0); Lymphocytes % 18.7 % (21.2-54.2); Mean Corpuscular HGB Conc 30.1 GM/DL (32-36); Mean Corpuscular Volume 79.9 FL (87-102); Mean Platelet Volume 9.2 FL (9.6-12.0); Monocytes # 1.3 10*3/uL (0.11-0.8); Monocytes % 14.7 % (1.7-12.7); Neutrophils % 63.2 % (38.7-73.9); Platelet Count 355 T/CUMM (130-400); Red Blood Count 2.99 MC/CUMM (3.8-5.5); Red Cell Distribution Width 24.8 % (9.3-17.3); White Blood Count 8.6 T/CUMM (4-12)
[2022-05-29 04:11] LABS: INR 1.1; PT Patient Result 12.1 SECS (10.1-12.1)
[2022-05-29 04:13] LABS: Bacteria,Urine Occasional /HPF (Few); Bilirubin,Urine Negative (Negative); Blood, Urine Negative (Negative); Glucose,Urine (UA) Negative (Negative); Ketones,Urine Negative (Negative); Mucus,Urine Occasional /LPF (Occasional); Nitrite,Urine Negative (Negative); Protein,Urine Negative (Negative); RBC,Urine 2 /HPF (0-4); Urine Appearance Clear (Clear); Urine Color Yellow (Yellow); Urine Specific Gravity 1.015 (1.001-1.035); Urine pH 5.5 (4.5-8.0)
[2022-05-29 04:14] LABS: Urine Urobilinogen 0.2 eU/dL (<2.0)
[2022-05-29 04:18] LABS: Hypochromia 1+; Platelet Estimate Normal
[2022-05-29 04:20] LABS: Anisocytosis 1+; Microcytosis 1+
[2022-05-29 04:21] LABS: Burr Cells Slight; Ovalocytes Slight
[2022-05-29 04:22] LABS: Macrocytosis 1+; Polychromasia Slight
[2022-05-29] MEDS ORDERED: CALCIUM GLUCONATE RIDER 1,000 MG/50 ML PREMIX IV ONE ×2 (04:45→19:45)
[2022-05-29 04:52] LABS: Albumin 1.9 G/DL (3.4-5.0); Bilirubin,Total 0.4 MG/DL (0.20-1.00); Calcium 8.1 MG/DL (8.5-10.1); Osmolality,Calculated 287.3 MOS/KG (273-304); Potassium 4.1 MMOL/L (3.5-5.1); Total Protein 5.6 G/DL (6.4-8.2)
[2022-05-29] MEDS ORDERED: PANTOPRAZOLE 40 MG TABLET PO SCH (09:00)
[2022-05-29 11:27] LABS: Hematocrit 27.4 VOL% (42.0-52.0); Hemoglobin 8.9 GM/DL (14.0-18.0)
[2022-05-29] MEDS ORDERED: MORPHINE 2 MG/1 ML SYRINGE IV PRN (11:40)
[2022-05-29] MEDS: LACTATED RINGERS 1,000 ML IV SCH ×2 (14:55→19:09)
[2022-05-29 18:43] LABS: Basophils % 0.6 % (0.0-0.8); Eosinophils # 0.1 10*3/uL (0.0-0.87); Eosinophils % 1.1 % (0.00-10.9); Hemoglobin 7.1 GM/DL (14.0-18.0); Immature Granulocytes % 0.8 %; Immature Granulocytes Absolute 0.05 #; Lymphocytes # 1.2 10*3/uL (1.4-4.0); Lymphocytes % 18.1 % (21.2-54.2); Mean Corpuscular HGB Conc 32.3 GM/DL (32-36); Mean Corpuscular Volume 84.3 FL (87-102); Mean Platelet Volume 8.9 FL (9.6-12.0); Monocytes % 15.8 % (1.7-12.7); Neutrophils % 63.6 % (38.7-73.9); Platelet Count 236 T/CUMM (130-400); Red Blood Count 2.61 MC/CUMM (3.8-5.5); White Blood Count 6.6 T/CUMM (4-12)
[2022-05-29 19:10] LABS: Eosinophils 2 % (0-10); Lymphocytes 10 % (20-55)
[2022-05-29] MEDS ORDERED: VECURONIUM 10 MG VIAL IV ONE ×2 (19:10→19:14)
[2022-05-29] MEDS ORDERED: ETOMIDATE 20 MG/10 ML VIAL IV ONE ×2 (19:10→19:14)
[2022-05-29 19:13] LABS: Ovalocytes Slight; Platelet Estimate Normal; Polychromasia Slight
[2022-05-29 19:14] LABS: Total Cells Counted 100
[2022-05-29] MEDS ORDERED: CALCIUM CHLORIDE 1,000 MG/10 ML SYRINGE IV ONE (19:29)
[2022-05-29] MEDS ORDERED: VASOPRESSIN 100 UNITS in SODIUM CHLORIDE 0.9% 95 ML IV SCH (21:00)
[2022-05-29 21:04] VITALS: BP 77/42
[2022-05-29] MEDS ORDERED: PHENYLEPHRINE 1 MG/10 ML SYRINGE IV ONE (21:16)
[2022-05-29] MEDS ORDERED: ETOMIDATE 40 MG/20 ML VIAL IV ONE (21:16)
[2022-05-29] MEDS ORDERED: ROCURONIUM 50 MG/5 ML VIAL IV ONE (21:16)
[2022-05-29] MEDS ORDERED: CALCIUM CHLORIDE 1,000 MG/10 ML VIAL IV ONE (21:16)
[2022-05-29] MEDS: PANTOPRAZOLE INJ 200 MG in SODIUM CHLORIDE 0.9% 250 ML IV SCH (22:17)
== END 2022-05-29 22:45 | disposition expired | DRG 374 ==
LOC: N.ED 16:52 → SUATTDRO 18:18 → N.EDINP 18:18 → N.CC 20:01
PROVIDERS: ADMIT Family Medicine; ATTEND Internal Medicine